=== PATIENT | female | born 1965 | race Caucasian/White ===

== ENCOUNTER 2016-05-20 11:29 | Outpatient (CLI) | payer BC ==
[~2016-05-20] VITALS: Ht 170.2 cm; Wt 82.7 kg
--- NOTE | ~2016-05-20 | HEMODYNAMI ---
PATIENT:WINSTON LANGFORD MEDICAL RECORD: [id number] : 69 LOCATION:[facility] ADMISSION DATE: 05/20/16 Generatedon:05/20/201614:57 Patient name: WINSTON LANGFORD Patient #: [id number] SSN : : 1965 Date of study: 05/20/2016 Page: Of Hemodynamic Procedure Report Patient Data Patient Demographics Procedure consent was obtained First Name: WINSTON Gender: Female Last Name: PRIMITIVO : 1965 Patient #: [id number] Age: 51 year(s) Race: Unknown Additional ID: [id number] Contact details Address: [address] [place] [address] State: [place] City: [place] Zip code: [address] Past Medical History Allergies: No known allergies Admission Admission Data Admission Date: 05/20/2016 Admission Time: 11:29 Lab Results Lab Result Date: 05/20/2016 Lab Result Time: 0:00 CBC Name Units Result Min Max Hemoglobin g/dl 13.6 --(*---)-- 13.5 17.5 Procedure Procedure Types Cath Procedure Miscellaneous Procedures Moderate Sedation up to 30 minutes Peripheral Cath Diagnostic Procedure Cath Peripheral Otjhl-Gdhbkzq-Ofx-Off Procedure Description Procedure Date Procedure Date: 05/20/2016 Procedure Start Time: 14:43 Procedure End Time: 14:56 Procedure Staff Name Function Giovanni Moran MD Performing Physician Romi Vitale RN Nurse Karson Vargas RT Scrub Lamaredward Nagel RT Monitor Procedure Data Cath Procedure Fluoroscopy Diagnostic fluoroscopy Total fluoroscopy Time: 1.1 time: 1.1 min min Diagnostic fluoroscopy Total fluoroscopy dose: 97 dose: 97 mGy mGy Contrast Material Contrast Material Type Amount (ml) Isovue 300 82 Entry Location Entry Primary Successful Side Size Upsize Upsize Entry Closure Succes sful Closure Location (Fr) 1 (Fr) 2 (Fr) Remarks Device Remarks Femoral Right 5 Fr Exoseal artery Estimated blood loss: 5 ml Diagnostic catheters Device Type Used For End Catheter Placement Cordis Tempo 5Fr UF Abdominal catheter aortogram with runoff Procedure Complications No complications Procedure Medications Medication Administration Route Dosage Oxygen NC 2 l/min Heparin Flush Bag added to field 2 bags (1000units/500ml NS) Lidocaine 2% added to field 20 Versed I.V. 1 mg Fentanyl I.V. 50 mcg Versed I.V. 1 mg Fentanyl I.V. 50 mcg Versed I.V. 1 mg Fentanyl I.V. 50 mcg Versed I.V. 1 mg Fentanyl I.V. 50 mcg Hemodynamics Rest HGB: 13.6 (g/dl) Heart Rate: 71 (bpm) Snapshots Pre Cath Intra NCS Post Cath Vital Signs Time Heart Resp SPO2 etCO2 [id number] NIBP (mmHg) Rhythm Pain Sedation Rate (ipm) (%) (mmHg) (mmHg) Status Level (bpm) 14:16:10 64 14 99 0 0 188/95(123) NSR 0 (11) 10(A) , No pain 14:20:38 72 15 100 0 0 179/96(142) NSR 0 (11) 10(A) , No pain 14:25:04 71 15 96 0 0 172/90(121) NSR 0 (11) 10(A) , No pain 14:29:25 71 15 99 0 0 149/87(120) NSR 0 (11) 10(A) , No pain 14:33:47 71 14 98 0 0 150/79(113) NSR 0 (11) 10(A) , No pain 14:38:03 69 16 95 0 0 143/75(99) NSR 0 (11) 10(A) , No pain 14:42:21 70 16 96 0 0 128/69(101) NSR 0 (11) 9(A) , No pain 14:46:35 75 15 100 0 0 149/84(123) NSR 0 (11) 10(A) , No pain 14:50:57 85 16 99 0 0 150/82(119) NSR 0 (11) 10(A) , No pain 14:55:17 76 16 99 0 0 147/81(108) NSR 0 (11) 10(A) , No pain Medications Time Medication Route Dose Verified Delivered Reason Notes Effec tiveness by by 14:15:03 Oxygen NC 2 Giovanni Romi Per l/min Dean Vitale RN physician 14:15:11 Heparin Flush added 2 Giovanni Giovanni used for Bag to bags Dean Moran MD procedure (1000units/500ml field NS) 14:15:19 Lidocaine 2% added 20ml Giovanni Giovanni used for to vial Dean Moran MD procedure field 14:28:30 Versed I.V. 1 mg Giovanni Romi for Dean Vitale RN sedation 14:28:47 Fentanyl I.V. 50 Giovanni Romi for mcg Dean Vitale RN sedation 14:31:39 Versed I.V. 1 mg Giovanni Romi for Dean Vitale RN sedation 14:31:43 Fentanyl I.V. 50 Giovanni Romi for mcg Dean Vitale RN sedation 14:33:48 Versed I.V. 1 mg Giovanni Romi for Dean Vitale RN sedation 14:33:54 Fentanyl I.V. 50 Giovanni Romi for mcg Dean Vitale RN sedation 14:38:44 Versed I.V. 1 mg Giovanni Romi for Dean Vitale RN sedation 14:38:52 Fentanyl I.V. 50 Giovanni Romi for mcg Dean Vitale RN sedation Procedure Log Time Note 14:07:21 Karson TAN(R) sent for patient. Start room use. 14:07:22 Time tracking: Regular hours 14:07:26 Plan of Care:Hemodynamics will remain stable., Cardiac rhythm will remain stable., Comfort level will be maintained., Respiratory function will remain adequate., Patient/ family verbilizes understanding of procedure., Procedure tolerated without complication., Recovers from procedure without complications.. 14:08:47 Patient received from Pre/Post Procedure Room to CCL 1 Alert and oriented. Tansferred to table in Supine position. 14:08:48 Correct patient and procedure confirmed by team. 14:08:48 Warm blankets applied, and janet hugger turned on for patient comfort. 14:08:50 ECG and BP/O2 sat monitors applied to patient. 14:08:50 Signed procedure consent form obtained from patient. 14:08:51 Full Disclosure recording started 14:14:53 Vital chart was started 14:15:03 Oxygen 2 l/min NC was administered by Romi Vitale RN; Per physician; 14:15:11 Heparin Flush Bag (1000units/500ml NS) 2 bags added to field was administered by Giovanni Moran MD; used for procedure; 14:15:19 Lidocaine 2% 20ml vial added to field was administered by Giovanni Moran MD; used for procedure; 14:18:01 Rhythm: sinus rhythm 14:18:12 H&P Date Dictated: 05/15/2016 Within 30 days and on chart., H&P Addendum completed by physician on day of procedure. (MUST COMPLETE FOR ALL OUTPATIENTS). 14:18:14 Pre-op teaching completed and patient verbalized understanding. 14:18:14 Pre-procedure instructions explained to patient. 14:18:15 Family in waiting room. 14:18:17 Patient NPO since Midnight. 14:18:25 Patient allergic to No known allergies 14:18:28 Is the patient allergic to Iodine/contrast media? No. 14:18:32 Is patient on blood thinner?Yes 14:18:54 Xarelto last on 05/18/16 14:18:57 Patient diabetic? No. 14:19:00 Snore? Yes 14:19:00 Previous problem with sedation/anesthesia? No ? 14:19:01 Sleep apnea? No 14:19:02 Deviated septum? No 14:19:03 Sticks out tongue? Yes 14:19:03 Opens mouth fully? Yes 14:19:05 Airway obstruction? No ? 14:19:06 Dentures? No ? 14:19:10 Pre procedure: right dorsailis pedis pulse 2+ Normal; easily identifiable; not easily obliterated 14:19:13 Pre procedure: left dorsailis pedis pulse 2+ Normal; easily identifiable; not easily obliterated 14:19:15 Patient pain scale 0/10 ?. 14:19:24 IV patent on arrival in left hand with 0.9% NaCl at [facility]. 14:23:09 Lab Result : Hemoglobin 13.6 g/dl 14:23:14 Lab results pending. 14:23:27 Bilateral groins area was prepped with chlora-prep and draped in sterile fashion 14:23:28 Alarms reviewed by R. N. 14::29 Sharps counted by scrub and verified by R.N. 14:25:05 Baseline sample Acquired. 14:27:45 Final Timeout: patient, procedure, and site verified with staff and physician. All members of the team are in agreement. 14:28:24 Right groin site verified by team. 14::27 Physical assessment completed. ASA score P 2 - A patient with mild systemic disease as per Giovanni Moran MD. 14:28:30 Versed 1 mg I.V. was administered by Romi Vitale RN; for sedation; 14::31 Sedation plan: IV Moderate Sedation Versed, Fentanyl 14:28:47 Fentanyl 50 mcg I.V. was administered by Romi Vitale RN; for sedation; 14:31:12 Medline Cath Pack opened to sterile field. 14:31:12 Bag Decanter opened to sterile field. 14:31:13 St Minor 260cm J .035 wire opened to sterile field. 14:31:13 Terumo 5Fr Thorsby Sheath opened to sterile field. 14:31:14 Acist Hand Control opened to sterile field. 14:31:15 Acist Manifold opened to sterile field. 14:31:18 Tegaderm 4 x 4 opened to sterile field. 14:31:29 Acist Syringe opened to sterile field. 14:31:39 Versed 1 mg I.V. was administered by Romi Vitale RN; for sedation; 14:31:43 Fentanyl 50 mcg I.V. was administered by Romi Vitale RN; for sedation; 14:33:48 Versed 1 mg I.V. was administered by Romi Vitale RN; for sedation; 14:33:54 Fentanyl 50 mcg I.V. was administered by Romi Vitale RN; for sedation; 14:38:44 Versed 1 mg I.V. was administered by Romi Vitale RN; for sedation; 14:38:52 Fentanyl 50 mcg I.V. was administered by Romi Vitale RN; for sedation; 14:43:55 Procedure started. 14:43:58 Local anesthetic to right femoral artery with Lidocaine 2% by Giovanni Moran MD.INITIAL ACCESS ONLY 14:44:38 A 5 Fr sheath was inserted into the Right Femoral artery 14:46:36 A Cordis Tempo 5Fr UF catheter was advanced over the wire and used for Abdominal aortogram with runoff. 14:50:09 Catheter removed. 14:50:20 Cordis 5Fr Exoseal opened to sterile field. 14:50:36 Sheath removed intact; hemostasis achieved with Exoseal to the Right Femoral artery. 14:51:31 Procedure ended.(Physican Out) 14:51:45 Fluoroscopy time 01.10 minutes. 14:51:52 Fluoroscopy dose: 97 mGy 14:51:52 Flurop Dose total: 97 14:51:56 Contrast amount:Isovue 300 82ml. 14:51:57 Sharps counted by scrub and verified by R.N. 14:51:59 Insertion/operative site no bleeding no hematoma. 14:52:01 Post-op/insertion site Right Femoral artery dressed using a 4 x 4 and Tegaderm. 14:52:04 Post right femoral artery:stable, clean and dry 14:52:06 Post Procedure Pulses reassessed and unchanged 14:52:19 Post-procedure physical assessment completed. ASA score P 2 - A patient with mild systemic disease as per Giovanni Moran MD. 14:52:22 Post procedure rhythm: unchanged. 14:52:24 Estimated blood loss: 5 ml 14:52:25 Patient needs reinforcement of post procedure teaching. 14:52:25 Post procedure instruction explained to patient.Patient verbalizes understanding. 14:52:39 Procedure type changed to Cath procedure, Miscellaneous Procedures, Moderate Sedation up to 30 minutes, Peripheral Cath Diagnostic Procedure, Cath Peripheral, Qbbfm-Mtcpyiv-Osd-Off 14:52:45 Procedure Complication : No complications 14:52:52 See physician's report for complete and final results. 14:53:19 Procedure and supply charges have been captured, reviewed, submitted and are correct. 14:56:05 Vital chart was stopped 14:56:07 Report given to Pre/Post Procedure Room. 14:56:11 Patient transfered to Pre/Post Procedure Room with Stretcher. 14:56:18 Full Disclosure recording stopped 14:56:18 Procedure ended. 14:56:21 End room use (Document Last) Device Usage Item Manufacture Quantity Catalog Hospital Part Current Minimal Lot# / Name Number Charge Number Stock Stock Seri al# Code Bag Microtek 1 [id number] [id number] [id number] 5 [employer] Medline Cardinal 1 [id number] 191587 26553 982172 5 Cath Health Pack Terumo Terumo 1 [id number] 955546 404734 [address] St Minor 1 468755 158516 808219 076447 30 260cm J .035 wire Acist Acist 1 79056 655636 768299 790188 5 Hand [employer] Inc Acist Acist 1 14258 606492 643029 292844 5 Manifold [employer] Inc Tegaderm 3M 1 1626W 150006 927341 346455 5 4 x 4 Acist Acist 1 71352 902544 629260 265296 20 Syringe [employer] Inc Cordis Cardinal 1 [id number] 889512 388316 275357 10 Tempo Health 5Fr UF catheter Cordis Cardinal 1 EX500 154274 694082 361463 10 5Fr Health Exoseal Signature Audit [place] Stage Time Signature Unsigned Intra-Procedure 05/20/2016 Lamar 2:57:25 PM Counts RT(R) Signatures Monitor : Lamar Signature : Counts RT Date : Time : [id number] [place] [address]
[2016-05-20] MEDS ORDERED: DIOVAN320 MG PO (13:09)
[2016-05-20] MEDS ORDERED: COREG 3.1253.125 MG PO (13:10)
[2016-05-20] MEDS ORDERED: XARELTO20 MG PO (13:10)
[2016-05-20] MEDS ORDERED: EFFEXOR37.5 MG PO (13:11)
[2016-05-20] MEDS ORDERED: SINGULAIR10 MG PO (13:11)
[2016-05-20] MEDS ORDERED: ZYRTEC10 MG PO (13:12)
[2016-05-20 13:19] VITALS: BP 159/83; Ht 170.2 cm; Wt 82.7 kg
[2016-05-20 13:50] LABS: BASOPHILS 0.5 % (0.0-2.0); EOSINOPHILS 2.3 % (0-7); HEMATOCRIT 42.3 % (36.0-48.0); HEMOGLOBIN 13.6 g/dL (12-16); IMMATURE GRANULOCYTES 0.2 % (0-5); LYMPHOCYTES 33.6 % (15-50); MCH 29.8 pg (26.0-34.0); MCHC 32.2 g/dL (31.0-37.0); MCV 92.6 fL (80.0-100.0); MONOCYTES 9.5 % (2-11); NEUTROPHILS 53.9 % (40-80); PLATELET COUNT 250 10x3/uL (130-400); RBC 4.57 10x6/uL (4.00-5.40); RDW 13.8 % (11.5-14.5); WBC 5.6 10x3/uL (4.8-10.8)
--- NOTE | 2016-05-20 15:12 | NUR ---
VSS WITH CHEST PAIN DENIED 5 FR EXOSEAL R/GROIN CDI NO BLEEDING NO HEMATOMA NOTED. INSTRUCTED PATIENT TO KEEP HEAD FLAT ON PILLOW WITH RLE STRAIGHT
--- NOTE | 2016-05-20 15:42 | NUR ---
RESTING QUIETLY WITH EYES CLOSED NO DISTRESS NOTED. 5 FR EXOSEAL R/GROIN CDI NO BLEEDING NO HEMATOMA NOTED. FAMILY AT SIDE VSS
--- NOTE | 2016-05-20 15:58 | NUR ---
NO CHANGE IN ASSESSMENT RESTING QUIETLY
--- NOTE | 2016-05-20 17:00 | NUR ---
DISCHARGE INSTRUCTIONS GIVEN, VERBALIZED UNDERSTANDING. TAKEN OUT VIA WHEELCHAIR BY CATH LOCOMOTIVE OPERATOR. LEFT FACILITY WITH FAMILY MEMBER AND ALL PERSONAL BELONGINGS.
--- NOTE | 2016-05-29 14:54 | OP ---
PATIENT NAME: WINSTON LANGFORD MEDICAL RECORD: [id number] :69 LOCATION:[facility] ADMISSION DATE: SURGEON: KRISH WISDOM M.D. DATE OF OPERATION: 05/20/2016 REFERRING PHYSICIAN: Dr. Shankar Solorio Jr. at [place], [place]. PROCEDURE PERFORMED: Aortofemoral runoff. INDICATION: A 51-year-old woman who presents with symptoms of claudication and abnormal lower extremity arterial duplex. EQUIPMENT USED: A 5-Turkish UF catheter. TECHNIQUE: A 5-Turkish sheath was inserted in retrograde fashion in the right common femoral artery. Next, a 5-Turkish UF catheter was advanced to the level of T12. Power injection was performed to visualize the distal aorta. Next, the catheter was pulled down to the level of the bifurcation. Power injection was then performed to visualize the right and left lower extremities. FINDINGS: Distal aorta is of good caliber. There is no evidence of any atheroma or stenosis. Each kidney received a single arterial supply. There is no evidence of renal artery stenosis. Right common iliac artery is large in caliber and widely patent. Right common femoral artery is large in caliber and widely patent. Right superficial artery is large in caliber and widely patent. Right popliteal artery is large in caliber and widely patent. Below the knee, there appears to be 3-vessel runoff. Left common iliac artery is large in caliber and widely patent. Left common femoral artery is large in caliber and widely patent. Left superficial artery is large in caliber and widely patent. Left popliteal artery is large in caliber and widely patent. Below the knee, there is 3-vessel runoff. IMPRESSION: Aortofemoral runoff reveals patent vessels with no evidence of any peripheral vascular disease. RECOMMENDATIONS: I suspect her pain may be from her lumbar spine. TRANSINT:[id number] Voice Confirmation ID: [id number] DOCUMENT ID: [id number] KRISH WISDOM M.D. at 1454 CC: [id number] DICTATION DATE: 05/20/16 1457 ELECTRIC WELDER HELPER: 05/20/16 2357 DEP CLI 05/20/16 [place] [address]
== END 2016-05-20 17:00 | disposition home or self-care (01) ==
LOC: D.CATH 11:29 → EDBD 14:00 → D.CATH 14:00
PROVIDERS: Internal Medicine Cardiovascular Disease
DX: M79.605 Pain in left leg (principal); M79.604 Pain in right leg